=== PATIENT | female | born 1990 | race Caucasian/White ===

== ENCOUNTER 2016-06-19 11:00 | Observation (INO) | payer OTHER, SELFPAY ==
[~2016-06-19] VITALS: Ht 168.1 cm; Wt 89.2 kg
--- NOTE | ~2016-06-19 | CON ---
PATIENT'S NAME: OSORIO FONSECA [facility] AGE: 25 Y [address] ROOM: [place] [address] LOCATION: GPED ADMIT DATE: 06/19/2016 Consultation DISCHARGE DATE: 06/20/2016 FAMILY PHYSICIAN: Arya Ko MD ATTENDING PHYSICIAN: Arya Ko DATE OF CONSULTATION: 06/19/2016 REFERRING PHYSICIAN: Madeline Granados APRN INDICATIONS: Community-acquired pneumonia and failed outpatient therapy. HISTORY OF PRESENT ILLNESS: This is a 25-year-old female with no previous past medical history, who developed cold symptoms over the last few weeks, which have not responded to antibiotics. She reports developing cough, sore throat, congestion, fever, and chills 2 weeks ago. She was initially treated with azithromycin and prednisone and feels like she got a little better, but the cough with green sputum persisted. She was placed on Augmentin and Rocephin without much improvement in her symptoms again. Dr. Ghosh evaluated here in the office on Saturday, June 15, 2016, and reports a chest x-ray showed pneumonia. She developed worsening chest pain on June 18, 2016, and was evaluated in the ER at [facility], where they report that the chest x-ray showed pneumonia still. She has tried albuterol once, but does not feel this has helped. She is currently trying to control the cough with cough syrup with codeine. However, this makes her drowsy. Overall, she feels a little bit better, but she is very fatigued from the persistent coughing at this point. She is currently 99% on room air. She has no history of lung disease or tobacco use. PAST MEDICAL HISTORY: No known past medical history. ALLERGIES: SEE MAR. MEDICATIONS: See MAR. FAMILY HISTORY: Negative for lung disease or heart disease. 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 She denies any tobacco or alcohol use. PATIENT'S NAME: OSORIO FONSECA [facility] AGE: 25 Y [address] ROOM: [place] [address] LOCATION: GPED ADMIT DATE: 06/19/2016 Consultation DISCHARGE DATE: 06/20/2016 FAMILY PHYSICIAN: Arya Ko MD ATTENDING PHYSICIAN: Arya Ko REVIEW OF SYSTEMS: A 12-point review of systems is negative except for what is noted in the HPI. PHYSICAL EXAMINATION: VITAL SIGNS: Blood pressure 134/84, pulse 82, respirations 12, temperature 98.1, she is 99% on room air. GENERAL: This is a 25-year-old, well-developed, well-nourished female, who is alert and oriented x3 and appears in no acute distress at this time of exam. HEENT: Head: Normocephalic and atraumatic. Eyes are clear. NECK: Supple. No adenopathy. No carotid bruits or JVD. LUNGS: With few rales at the bases, otherwise, clear without wheezing. HEART: Regular rate and rhythm without murmur, gallop, or rub. ABDOMEN: Soft, nontender, nondistended. Bowel sounds x4. EXTREMITIES: No cyanosis, clubbing, or edema. DIAGNOSTIC DATA: Sodium 139, potassium 3.8, BUN 9, creatinine 0.7. WBC 11.7, hemoglobin 14, hematocrit 43.4, platelets 243. IMPRESSION: 1. Pneumonia with failing outpatient therapy, question multidrug-resistant pathogen. 2. Cough due to pneumonia, plus or minus superimposed bronchial hyperresponsiveness. PLAN: We will check sputum culture, respiratory virus panel, and procalcitonin level. Due to failing outpatient therapy and worsening shortness of breath and cough, we will check a CT of the chest without contrast. We will continue with Levaquin and steroids for now. We will also start her on DuoNeb every 4 hours. Further recommendations will be made pending the course of her stay. Thank you for the consult and the opportunity to participate in the patient's care. MADELINE GRANADOS APRN FOR MD [facility]/rox /[id number] d: 07/03/16 0011 t: 07/04/16 0751, CONSULTATION REPORT
[2016-06-19] MEDS ORDERED: CEFTIN500 MG PO (12:15)
[2016-06-19] MEDS ORDERED: ROCEPHIN1 G1 IM (12:16)
[2016-06-19] MEDS ORDERED: IMITREX100 MG PO (12:16)
[2016-06-19] MEDS ORDERED: THERAGRAN-M1 TAB PO (12:17)
[2016-06-19] MEDS ORDERED: PHENERGAN WITH15 ML PO (12:27)
[2016-06-19] MEDS ORDERED: ALEVE220 MG PO (14:27)
[2016-06-19] MEDS ORDERED: TYLENOL EXTRA500 MG PO (14:27)
[2016-06-19 15:09] LABS: BASOPHIL # 0.1 K/uL (0.0-0.2); BASOPHIL % 0.5 %; EOSINOPHIL # 0.2 K/uL (0.0-0.5); EOSINOPHIL % 1.8 %; HEMATOCRIT 43.4 % (33.0-46.0); IMMATURE GRANULOCYTE % 0.3 %; LYMPHOCYTE % 25.5 %; MCH 29.2 pg (27.0-34.0); MCHC 32.3 gm/dL (32.0-36.5); MCV 90.4 fl (83.0-98.0); MONOCYTE # 0.8 K/uL (0.0-1.0); MONOCYTE % 7.2 %; MPV 9.7 fl (9.4-12.4); NEUTROPHIL # (ANC) 7.6 K/uL (1.8-7.8); NEUTROPHIL % 64.7 %; NRBC % 0 /100WBC (0-0.00); PLATELET COUNT 243 K/uL (150-450); RDW-CV 12.4 % (11.9-14.6); WBC 11.7 K/uL (4.0-11.0)
[2016-06-19 15:36] LABS: ALBUMIN 3.7 gm/dL (3.5-5.0); ALK PHOS 61 IU/L (33-138); ALT 17 IU/L (12-78); ANION GAP 11.8 (10.0-19.0); AST 14 IU/L (10-40); BLOOD UREA NITROGEN 9 mg/dL (6-24); CALCIUM 8.6 mg/dL (8.5-10.5); CHLORIDE 105 mMol/L (96-110); CO2 26 mMol/L (22-32); CREATININE 0.7 mg/dL (0.5-1.1); ESTIMATED GFR (MDRD EQUATION) > 60; POTASSIUM 3.8 mMol/L (3.7-5.1); SODIUM 139 mMol/L (135-145); TOTAL BILIRUBIN 0.4 mg/dL (0.0-1.5); TOTAL PROTEIN 7.3 g/dL (6.0-8.4)
--- NOTE | 2016-06-19 15:48 | NUR ---
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 PATIENT HAS APPROX 3 WEEK HISTORY OF INCREASE WORK OF BREATING, FATIGUE, AND ILLNESS. PATIENT STATES THAT SHE HAS BEEN ON SEVERAL ANTIBIOTICS AND PREDNISONE PAKS IN THE LAST 3 WEEKS. ALSO REPORTS THAT SHE HAS HAD 3 DAYS OF ROCEPHIN ON OUTPATIENT BASIS. PATIENT WAS SEEN AT [facility] LAST EVENING AND ADMITTED TODAY FOR OBSERVATION. ON ADMISSION PATIENT DOES HAVE NON-PRODUCTIVE COUGH NOTED, LUNG SOUNDS CLEAR/DIMINISHED NO RESPIRATORY DISTRESS NOTED.
--- NOTE | 2016-06-20 03:54 | NUR ---
Significant Event: Afebrile. VSS on RA. Rated headache/neck pain 3 at beginning of shift, tylenol given at 1908 with relief noted. Lung sounds clear to slightly coarse. Frequent harsh nonproductive cough, duoneb given q6hrs while awake. Patient requested phenergan with codeine at 2349 for relief in cough. Left wrist IV infusing with no complications. 1300 ml in PO, 1037 ml in IV, 3 vds. Follow up: Continue to need sputum culture.
[2016-06-20] MEDS ORDERED: LEVAQUIN 750 M750 MG PO (12:37)
[2016-06-20] MEDS ORDERED: DELTASONE20 MG PO ×2 (12:39→12:40)
[2016-06-20] MEDS ORDERED: DELTASONE10 MG PO (12:41)
[2016-06-20] MEDS ORDERED: SYMBICORT 16010.2 GM INH (12:44)
[2016-06-20] MEDS ORDERED: PROVENTIL OR V6.7 GM INH (12:48)
--- NOTE | 2016-06-20 13:30 | NUR ---
Significant Event: Occasional loose cough, did cough up a scant thick mucus and it was sent to lab. SaO2 >95 on room air. Able to eat and drink without increasing cough or WOB. Instructed in use of spacer with inhalers. Written and verbal dismissal instructions given. Tolerated po deltasone and IV levaquin Follow up:Dismissed.
== END 2016-06-20 13:30 | disposition disaster alternative care site (69) ==
LOC: EDSTATUS 11:00 → GPED 11:59
PROVIDERS: ADMIT Family Medicine
DX: J18.9 Pneumonia, unspecified organism (principal); R53.83 Other fatigue; Z79.899 Other long term (current) drug therapy
CPT/HCPCS: G0378; G0379; J1956; J2920; J7512